=== PATIENT | male | born 1980 | race Caucasian/White ===

== ENCOUNTER 2020-01-20 17:11 | Emergency (ER) | payer OTHER, SELFPAY ==
[2020-01-20 17:30] VITALS: BP 134/75; PULSE 83; RESP 15; TEMP 37.1; O2SAT 100; BMI 26.2
--- NOTE | 2020-01-20 17:31 | DI.RAD.S_ITS ---
PROCEDURE: XR CHEST 2V INDICATIONS: sob, asthma TECHNIQUE: 2 views of the chest were acquired. COMPARISON: None. FINDINGS: Surgical changes and devices: None. Lungs and pleura: Lungs are clear. No pleural effusions or pneumothorax. Mediastinum: Mediastinal contours are normal. Heart size is normal. Bones and chest wall: No suspicious bony abnormalities. Soft tissues appear unremarkable. IMPRESSION: No acute cardiopulmonary findings. Dictated by: Kimberly Hahn M.D. on 01/20/2020 at 17:51 Approved by: Kimberly Hahn M.D. on 01/20/2020 at 17:51
--- NOTE | 2020-01-20 18:03 | ED.URI ---
HPI - URI/Sore Throat <LILI Mccabe - Last Filed: 01/20/20 19:37> General Chief Complaint: Upper Respiratory Symptoms Stated Complaint: Asthma Flare Up, Sore Throat Time Seen by Provider: 01/20/20 17:21 Source: patient Mode of arrival: Family Vehicle Limitations: no limitations History of Present Illness HPI Narrative: The patient is a 39-year-old male current smoker with history of asthma who presents with a chief complaint of a ?asthma flare last night that required him to take his albuterol inhaler. Then this morning developed a sore throat. He denies any fevers, current shortness of breath or wheezing. He has not used his albuterol yet today. He does not use a spacer. He denies any abdominal pain nausea vomiting or diarrhea. He states that he recently had several teeth pulled and is on antibiotics per his dentist. 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 He complains of occasional ear pain as well. Review of Systems <LILI Mccabe - Last Filed: 01/20/20 19:37> Review of Systems Narrative: GENERAL: See HPI HEENT: See HPI RESPIRATORY: See HPI CARDIOVASCULAR: Denies chest pain, palpitations, orthopnea, edema, GASTROINTESTINAL: Denies nausea, vomiting, abdominal pain, diarrhea, constipation, melena. : Denies dysuria, frequency, incontinence, hematuria, urinary retention. MUSCULOSKELETAL: denies weakness, joint pain, or bony pain SKIN: Denies rash, skin lesions, or other NEUROLOGIC: Denies weakness, headache, numbness, change in speech, confusion, seizures, incoordination. PSYCHIATRIC: No concerning psychosocial issues. 12 point review of systems is negative except for those stated above Patient History <LILI Mccabe - Last Filed: 01/20/20 19:37> Social History Smoking Status: Current every day smoker Smoking Status: Current every day smoker alcohol intake frequency: 0-2 drinks per day Substance Use Type: marijuana Exam [facility] - Last Filed: 01/20/20 19:37> Narrative Exam Narrative: GENERAL: This is a well-nourished, well-developed patient, no acute distress HEAD: Atraumatic. Normocephalic. No temporal or scalp tenderness. EYES: Pupils equal round and reactive. Extraocular motions intact. No scleral icterus. No injection or drainage. ENT: Nose without bleeding, purulent drainage or septal hematoma. Throat without erythema, tonsillar hypertrophy or exudate. Uvula midline. Airway patent. Bilateral TMs pearly cardona NECK: Trachea midline. No JVD or lymphadenopathy. Supple, nontender, no meningeal signs. CARDIOVASCULAR: Regular rate and rhythm RESPIRATORY: Clear to auscultation. Breath sounds equal bilaterally. No wheezes, rales, or rhonchi. No cough. No increased respiratory effort for DEXA no accessory muscle use. Speaking full sentences. GASTROINTESTINAL: Abdomen soft, non-tender, nondistended. No hepato-splenomegaly, or palpable masses. No guarding. EXTREMITIES: No clubbing, cyanosis, or edema. No joint tenderness, effusion, or edema noted. BACK: Nontender without deformity or crepitance. No flank tenderness. NEURO: AOx3. SKIN: No rash or erythema on visible skin Initial Vital Signs Initial Vital Signs: Vital Signs Temperature 98.8 F 01/20/20 17:30 Pulse Rate 83 01/20/20 17:30 Respiratory Rate 15 01/20/20 17:30 Blood Pressure 134/75 01/20/20 17:30 Pulse Oximetry 100 01/20/20 17:30 <Saima Tirado DO - Last Filed: 01/21/20 07:18> Initial Vital Signs Initial Vital Signs: Vital Signs Temperature 98.8 F 01/20/20 17:30 Pulse Rate 83 01/20/20 17:30 Respiratory Rate 15 01/20/20 17:30 Blood Pressure 134/75 01/20/20 17:30 Pulse Oximetry 100 01/20/20 17:30 Course <DEAN Mccabe-ALLISON - Last Filed: 01/20/20 19:37> Orders Ordered: ED Orders 01/20/20 17:31 XR chest 2V Stat 01/20/20 18:16 Throat Culture Stat Vital Signs Vital signs: Vital Signs - 8 hr 01/20/20 17:30 01/20/20 18:36 01/20/20 19:20 Temperature 98.8 F Pulse Rate 83 75 86 Respiratory Rate 15 21 16 Blood Pressure 134/75 Blood Pressure [Right Arm] 133/83 Pulse Oximetry 100 97 100 <Saima Tirado DO - Last Filed: 01/21/20 07:18> Orders Ordered: ED Orders 01/20/20 17:31 XR chest 2V Stat 01/20/20 18:16 Throat Culture Stat Vital Signs Vital signs: Vital Signs - 8 hr 01/20/20 17:30 01/20/20 18:36 01/20/20 19:20 Temperature 98.8 F Pulse Rate 83 75 86 Respiratory Rate 15 21 16 Blood Pressure 134/75 Blood Pressure [Right Arm] 133/83 Pulse Oximetry 100 97 100 MDM - URI/Sore Throat <MALISSA Mccabe - Last Filed: 01/20/20 19:37> Differential Diagnosis Differential diagnosis: Likely upper respiratory infection, viral infection and pharyngitis Lab Data Labs: Point of Care Testing Rapid Strep A Negative Imaging Data Chest x-ray: Radiologist's Impression: [address] [place] [id number] XRay Report Signed Patient: Tre Mchugh R#: [id number] : 1980Acct:[id number] Age/Sex: 39 / MDate of Service: 01/20/20 Loc: ED Accession Number: [id number] Procedure: XR chest 2V Ordering Provider: Saima Thompson PROCEDURE: XR CHEST 2V INDICATIONS: sob, asthma TECHNIQUE: 2 views of the chest were acquired. COMPARISON: None. FINDINGS: Surgical changes and devices: None. Lungs and pleura: Lungs are clear. No pleural effusions or pneumothorax. Mediastinum: Mediastinal contours are normal. Heart size is normal. Bones and chest wall: No suspicious bony abnormalities. Soft tissues appear unremarkable. IMPRESSION: No acute cardiopulmonary findings. Dictated by: Kimberly Hahn M.D. on 01/20/2020 at 17:51 Approved by: Kimberly Hahn M.D. on 01/20/2020 at 17:51 [facility] Narrative Medical decision making narrative: The patient is a 39-year-old male presents with a chief complaint of concern of sore throat earlier today, wheezing last night. He has a history of asthma and took his inhaler last night but not today. He is afebrile, in no acute respiratory distress. Chest X ray shows no pneumonia. Rapid strep is negative. Throat culture in sauceda virus testing are pending. I discussed at length monitoring for signs room is a worsening shortness of breath come back to the emergency department for any acute concerns. Discussed following up with primary care provider. Discussed self quarantine, washing hands etcetera. Patient has no questions or concerns upon discharge and states understanding return precautions as well as follow-up care. <Saima Tirado, - Last Filed: 01/21/20 07:18> Lab Data Labs: Point of Care Testing Rapid Strep A Negative Discharge Plan Departure Patient Disposition: Home Clinical Impression: Upper respiratory infection Qualifiers: URI type: unspecified viral URI Qualified Code(s): J06.9 - Acute upper respiratory infection, unspecified Discharge Date/Time: 01/20/20 19:20 Instructions: DI for Viral Syndrome Activity Restrictions/Additional Instructions: Thank you for trusting us with your care today. Your strep came back negative and your chest x-ray shows no signs of pneumonia. The sauceda virus testing will come back in approximately 1 week we will call you if your results are positive or negative You have been diagnosed with a viral illness, which based on your symptoms, labs and imaging is highly suspicious for coronavirus *What to do: * per recommendations from the CDC and the [facility] Department of Health * stay home except to get medical care. Restrict activities outside your home, except for getting medical care. Do not go to work, school, or public areas. Avoid using public transportation, ride sharing, or taxis. * separate yourself from other people in your home. * call ahead before visiting your doctor * Wear a face mask * Cover your coughs and sneezes * Clean your hands often * Avoid sharing household items * Clean all high-touch services every day * Monitor your symptoms and seek prompt medical attention if your illness is worsening, particularly with difficulty in breathing. Referrals: [facility] [Outside] Stand Alone Forms: Work Release Note
[2020-01-20 18:36] VITALS: BP 133/83; PULSE 75; RESP 21; O2SAT 97
[2020-01-20 19:20] VITALS: PULSE 86; RESP 16; O2SAT 100
[2020-01-21 23:48] LABS: COVID19 Sendout Not Detected (Not Detected)
== END 2020-01-20 19:20 | disposition home or self-care (01) ==
PROVIDERS: Emergency Provider Nurse Practitioner Family
DX: J06.9 Acute upper respiratory infection, unspecified (principal); R06.02 Shortness of breath; J45.909 Unspecified asthma, uncomplicated
CPT/HCPCS: 71046; 87635; 87880; 99283